=== PATIENT | male | born 1980 | race African-American/Black ===

== ENCOUNTER 2018-03-22 05:10 | Emergency (ER) | payer OTHER ==
[~2018-03-22] VITALS: Ht 172.7 cm; Wt 79.4 kg
[~2018-03-22 05:10] MED LIST: NAPROSYN500 MG PO; NORFLEX100 MG PO
[2018-03-22 05:15] VITALS: BP 124/77
[2018-03-22] MEDS ORDERED: PREDNISONE 20 M20 MG PO (06:05)
[2018-03-22] MEDS ORDERED: NAPHCON-A EYE D15 ML OPHTHALMIC (06:05)
== END 2018-03-22 06:09 | disposition home or self-care (01) ==
LOC: ER 05:10
DX: H10.13 Acute atopic conjunctivitis, bilateral (principal)